=== PATIENT | male | born 2000 | race Caucasian/White ===

== ENCOUNTER → 2019-07-13 17:51 | Outpatient (CLI) | payer OTHER, SELFPAY ==
--- NOTE | 2019-07-13 17:54 | CT_ITS ---
STUDY: CT FACIAL BONES WITHOUT CONTRAST REASON FOR EXAM: Male, 18 years old. Nasal congestion RADIATION DOSAGE (If Supplied By Facility): CTDIvol = ( 33.06 ) mGy, DLP = ( 937.15 ) mGycm TECHNIQUE: The patient was scanned in a multi detector CT scanner. Sagittal and coronal images were reconstructed. Individualized dose optimization techniques were used for this CT. COMPARISON: None. FINDINGS: Normal soft tissue structures. Normal orbital amaya and orbital contents. Normal nasal bones and anterior nasal spine. Small marlena bullosa of the middle turbinates, left more than right. Mucosal thickening slightly narrowing the left ostiomeatal complex. Normal facial bones. There is possible fluid in the left middle ear. Slight mucosal thickening of the ethmoid air cells. Small retention cysts/mild mucosal thickening of the maxillary sinuses. Possible mild bilateral mastoiditis. CT/Sinus/Facial Bone IMPRESSION: Left otitis media. Slight mucosal thickening of the paranasal sinuses and mild narrowing of the left ostiomeatal complex. Possible mild bilateral mastoiditis. Electronically Signed: Tio Lara DO at 0:10 EST Tel [phone], Service support ,
== END ==
PROVIDERS: Family Provider Nurse Practitioner; PCP Nurse Practitioner; Referring Provider Otolaryngology; Visit Provider Otolaryngology
DX: J32.9 Chronic sinusitis, unspecified (principal)
CPT/HCPCS: 70486

== ENCOUNTER 2021-09-06 15:19 | Outpatient (CLI) | payer OTHER, SELFPAY | END 2021-09-06 23:59 | disposition short-term general hospital (02) | LOC: LABSPEC 15:34 | PROVIDERS: PCP Nurse Practitioner; Visit Provider Otolaryngology | DX: Z20.822 Contact with and (suspected) exposure to COVID-19 (principal) | CPT/HCPCS: 87635; U0003; U0005 ==